=== PATIENT | female | born 1995 | race African-American/Black ===

== ENCOUNTER 2021-04-11 16:56 | Emergency (ER) | payer SELFPAY ==
[~2021-04-11] VITALS: Ht 162.6 cm; Wt 97.7 kg
[2021-04-11 17:45] VITALS: BP 129/70
== END 2021-04-11 21:02 | disposition left against medical advice (07) ==
LOC: ER 16:56
DX: R05.9 Cough, unspecified (principal); Z20.822 Contact with and (suspected) exposure to COVID-19